=== PATIENT | female | born 1955 | race African-American/Black ===

== ENCOUNTER 2022-08-06 16:57 | Emergency (ER) | payer OTHER, MEDICAID ==
[~2022-08-06] VITALS: Ht 172.7 cm; Wt 78.5 kg
[2022-08-06 17:37] VITALS: BP_SYST 125
--- NOTE | 2022-08-06 18:07 | NUR ---
Per encoding clerk, pt LWBS.
== END 2022-08-06 18:07 | disposition left against medical advice (07) ==
LOC: SED 16:57
DX: R10.9 Unspecified abdominal pain (principal); Z53.21 Procedure and treatment not carried out due to patient leaving prior to being seen by health care provider
CPT/HCPCS: 82962